=== PATIENT | male | born 1985 | race Caucasian/White ===

== ENCOUNTER 2019-10-05 18:13 | Emergency (ER) | payer OTHER, SELFPAY ==
--- NOTE | ~2019-10-05 | XR_ITS ---
EXAMINATION: XR forearm LT 2V DATE: 10/05/2019 18:26 INDICATION: Left forearm injury and pain. TECHNIQUE: 2 views of left forearm were obtained. COMPARISON: None. FINDINGS: Bone alignment is normal. No fracture. Joint spaces are well maintained. There is no elbow joint effusion. There is dorsal forearm soft tissue swelling. IMPRESSION: 1. No fracture. Reviewed, dictated and finalized at location A. [employer] IMPRESSION: 1. No fracture.
[2019-10-05 18:22] VITALS: BP 131/83; PULSE 88; RESP 18; TEMP 37.1; O2SAT 98
--- NOTE | 2019-10-05 18:22 | ED.UPPEXIN ---
HPI - Extremity Injury (Upper) General Chief Complaint: Extremity Injury, Upper Stated Complaint: lt arm injury Time Seen by Provider: 10/05/19 18:22 Source: patient and RN notes reviewed History of Present Illness HPI narrative: Patient is a 34-year-old male that presents the urgent care with complaints of left lower arm pain after a large piece of metal from a forklift fell on the arm. Patient states that happened approximately 1 hour ago. Patient states that he is having pain radiate from the left lower arm into the left pinky. Patient states it is difficult to make a fist due to pain. No other acute complaints. No acute distress noted. Patient aware of the plan of care. Related Data Home Medications Medication Instructions Recorded Confirmed No Home Medications 10/05/19 10/05/19 Allergies Allergy/AdvReac Type Severity Reaction Status Date / Time No Known Allergies Allergy Mild Verified 10/05/19 18:30 Review of Systems Review of Systems: Narrative: CONSTITUTIONAL: Denies fever, chills, or sweats. EYES: Denies visual changes, redness, or discharge. ENT: Denies rhinorrhea, congestion, sore throat, or otalgia. CARDIOVASCULAR: Denies chest pain, palpitations, or edema. RESPIRATORY: Denies cough or dyspnea. GASTROINTESTINAL: Denies abdominal pain, nausea, vomiting, or diarrhea. GENITOURINARY: Denies dysuria or hematuria. SKIN: Denies rash or itching. MUSCULOSKELETAL: Reports of left arm pain due to injury NEUROLOGIC: Denies headache, numbness, or weakness. All other systems reviewed are negative, except as documented in HPI. [facility] Family History Family History (Updated 04/08/14 @ 07:13 by DOCTOR UNKNOWN) Grandparent Family history of malignant neoplasm Father Family history of malignant melanoma Social History Social History Alcohol intake: never Comments At the time of my signature, I reviewed and agree with the nursing past medical, surgical, social, and family history. There is no relevant family history pertinent to the patient complaint. Exam Narrative: Exam Narrative: GENERAL: This is a well-nourished, well-developed patient, in no apparent distress. HEAD: normocephalic, atraumatic. EYES: PERRL. Sclera clear/white. Vision is grossly intact. EARS: External ears normal NOSE: External nose normal with no obvious nasal discharge THROAT: Mucous membranes moist NECK: Neck supple CARDIOVASCULAR: Regular rate and rhythm without murmurs, gallops, or rubs. RESPIRATORY: Clear to auscultation. Breath sounds equal bilaterally. No wheezes, rales, or rhonchi. SKIN: 0.25 centimeter abrasion noted to the left forearm surrounded by notable edematous contusion. Warm, intact with no suspicious lesions or rash, good texture and turgor. NEURO: awake, alert, and oriented to person, place and time. There were no obvious focal neurologic abnormalities. EXTREMITIES: Left lower arm pain with notable edematous contusion to the proximal ulna/mid forearm; range of motion to left upper extremity not tested due to pain. Difficulty making a fist. Capillary refill less than 2 seconds to left upper extremity with positive strong radial pulse. Course Vital Signs Vital signs: Vital Signs Temperature 98.7 F 10/05/19 18:22 Pulse Rate 88 10/05/19 18:22 Respiratory Rate 18 10/05/19 18:22 Blood Pressure 131/83 10/05/19 18:22 Pulse Oximetry 98 10/05/19 18:22 Temperature 98.7 F 10/05/19 18:22 Pulse Rate 88 10/05/19 18:22 Respiratory Rate 18 10/05/19 18:22 Blood Pressure 131/83 10/05/19 18:22 Pulse Oximetry 98 10/05/19 18:22 Reviewed MDM - Extremity Injury (Upper) MDM Narrative Medical decision making narrative: Reviewed x-ray results with the patient. He is aware that x-ray was negative for fracture or arm deformity. Advised patient to limit strenuous activity especially lifting, pushing, pulling until activity as tolerated. Use Tylenol/ibuprofen as needed for pain. Use ice to the c
== END 2019-10-05 18:37 | disposition home or self-care (01) ==
PROVIDERS: Emergency Provider Nurse Practitioner Family; PCP Family Medicine
DX: S50.12XA Contusion of left forearm, initial encounter (principal); W20.8XXA Other cause of strike by thrown, projected or falling object, initial encounter
CPT/HCPCS: 73090; 99213; G0463

== ENCOUNTER 2021-06-26 15:40 | Emergency (ER) | payer BC, SELFPAY ==
--- NOTE | 2021-06-26 15:41 | ED.SKABFB ---
HPI - Skin/Abscess/Foreign Bdy General Chief complaint: Skin/Abscess/Foreign Body Stated complaint: rash Time Seen by Provider: 06/26/21 15:41 Source: patient and RN notes reviewed History of Present Illness HPI narrative: Patient is a 35-year-old male who presents the urgent care with complaints of a rash to bilateral arms, low back, neck and chest. Patient states that he first noticed it on his arms after working outside on Saturday. Patient states he then wear the same clothes to work in his barn on Saturday. Patient states that his spread overnight. Patient has been using IV dry for the itch. No other acute complaints. No acute distress noted. Patient aware of the plan of care. Some parts of this dictation were generated by voice recognition software and may contain typographical and/or grammatical inaccuracies. Related Data Allergies Allergy/AdvReac Type Severity Reaction Status Date / Time No Known Allergies Allergy Mild Verified 06/26/21 15:50 Review of Systems Review of Systems: CONSTITUTIONAL: Denies fever, chills, or sweats. EYES: Denies visual changes, redness, or discharge. ENT: Denies rhinorrhea, congestion, sore throat, or otalgia. CARDIOVASCULAR: Denies chest pain, palpitations, or edema. RESPIRATORY: Denies cough or dyspnea. GASTROINTESTINAL: Denies abdominal pain, nausea, vomiting, or diarrhea. GENITOURINARY: Denies dysuria or hematuria. SKIN: Reports of itchy rash to bilateral arms, low back, neck, face and chest MUSCULOSKELETAL: Denies back pain, joint pain, or myalgia. NEUROLOGIC: Denies headache, numbness, or weakness. All other systems reviewed are negative, except as documented in HPI. [facility] Family History Family History (Updated 04/08/14 @ 07:13 by DOCTOR UNKNOWN) Grandparent Family history of malignant neoplasm Father Family history of malignant melanoma Social History Social History Alcohol intake: never Comments At the time of my signature, I reviewed and agree with the nursing past medical, surgical, social, and family history. There is no relevant family history pertinent to the patient complaint. Exam Narrative: GENERAL: This is a well-nourished, well-developed patient, in no apparent distress. HEAD: normocephalic, atraumatic. EYES: PERRL. Sclera clear/white. Vision is grossly intact. EARS: External ears normal NOSE: External nose normal with no obvious nasal discharge, nares without redness, no rhinorrhea. THROAT: Mucous membranes moist NECK: Neck supple CARDIOVASCULAR: Regular rate and rhythm without murmurs, gallops, or rubs. RESPIRATORY: Clear to auscultation. Breath sounds equal bilaterally. No wheezes, rales, or rhonchi. SKIN: Scattered urticaria with papular erythemic diffuse dermatitis to bilateral arms, neck, face, chest and low back NEURO: awake, alert, and oriented to person, place and time. There were no obvious focal neurologic abnormalities. EXTREMITIES: No clubbing, cyanosis, or edema. Course Vital Signs Vital signs: Vital Signs Temperature 98.1 F 06/26/21 15:46 Pulse Rate 77 06/26/21 15:46 Respiratory Rate 12 06/26/21 15:46 Blood Pressure 135/79 06/26/21 15:46 Pulse Oximetry 99 06/26/21 15:46 Temperature 98.1 F 06/26/21 15:46 Pulse Rate 77 06/26/21 15:46 Respiratory Rate 12 06/26/21 15:46 Blood Pressure 135/79 06/26/21 15:46 Pulse Oximetry 99 06/26/21 15:46 Reviewed MDM - Skin/Abscess/Foreign Bdy MDM Narrative Medical decision making narrative: Advised the patient to complete oral steroid regimen as prescribed. Be sure to eat and drink with the medication. Use the prescription cream to the affected areas as directed avoiding the underarms, groin and near the eyes. Use of Benadryl/Claritin/Zyrtec as needed [id number] for itch relief. Use [id number] TecNu scrub daily. Follow-up with your PCP within 2 to 5 days or for worsening symptoms or failure to improve. Differential Diagnosis Differential diagnosis
[2021-06-26 15:46] VITALS: BP 135/79; PULSE 77; RESP 12; TEMP 36.7; O2SAT 99
== END 2021-06-26 15:56 | disposition home or self-care (01) ==
PROVIDERS: Emergency Provider Nurse Practitioner Family; PCP Family Medicine
DX: L23.7 Allergic contact dermatitis due to plants, except food (principal)
CPT/HCPCS: 99213; G0463